=== PATIENT | male | born 1990 | race Asian ===

== ENCOUNTER 2023-03-11 10:44 | Inpatient (IN) | payer BC ==
[2023-03-08 12:52] LABS: BASOPHILS % (AUTO) 0.5 % (0-1); EOSINOPHILS # (AUTO) 0.1 X10'3 (0-0.9); EOSINOPHILS % (AUTO) 0.6 % (0-6); LYMPHOCYTES # (AUTO) 1.7 X10'3 (1.1-4.8); LYMPHOCYTES % (AUTO) 16.9 % (21-51); MEAN CORPUSCULAR HEMOGLOBIN 31.7 PG (27.0-31.0); MEAN CORPUSCULAR HGB CONC 35.5 g/dL (33.0-36.5); MEAN CORPUSCULAR VOLUME 89.4 FL (78-98); MEAN PLATELET VOLUME 8.8 FL (7.4-10.4); MONOCYTES # (AUTO) 0.7 X10'3 (0-0.9); MONOCYTES % (AUTO) 7.2 % (2-12); NEUTROPHILS # (AUTO) 7.5 X10'3 (1.8-7.7); NEUTROPHILS % (AUTO) 74.8 % (42-75); PRE OP HEMATOCRIT 42.4 % (42.0-52.0); PRE OP HEMOGLOBIN 15.1 g/dL (14.0-17.9); PRE OP PLATELET COUNT 291 X10'3 (140-440); RED BLOOD COUNT 4.74 X10'6 (4.70-6.10); RED CELL DISTRIBUTION WIDTH 12.9 % (11.5-14.5)
[2023-03-08 13:05] LABS: PRE OP PROTIME 10.3 SECONDS (9.0-12.0)
[2023-03-08 13:06] LABS: ALBUMIN 4.2 G/DL (3.4-5.0); ALBUMIN/GLOBULIN RATIO 1.1 (1.1-1.5); ALKALINE PHOSPHATASE 81 IU/L (46-116); BLOOD UREA NITROGEN 16 MG/DL (7-18); BUN/CREATININE RATIO 14.5 (10.0-20.0); CALCIUM 9.4 MG/DL (8.5-10.1); CHLORIDE 99 MMOL/L (99-107); PRE OP ALT 35 U/L (30-65); PRE OP ANION GAP 12 (8-16); PRE OP AST 16 U/L (10-37); PRE OP BILIRUB, TOTAL 0.8 MG/DL (0.0-1.0); PRE OP GLUCOSE 184 MG/DL (70-104); PRE OP POTASSIUM 3.7 MMOL/L (3.4-5.1); PRE OP SODIUM 139 MMOL/L (135-145); TOTAL CARBON DIOXIDE 27.8 MMOL/L (24-32); TOTAL PROTEIN 8.2 G/DL (6.4-8.2); eGFR 77 ML/MIN
[2023-03-08 13:09] LABS: HEMOGLOBIN A1C 6.1 % (4.5-6.2)
[~2023-03-11] VITALS: Ht 167.6 cm; Wt 97.2 kg
[2023-03-11] VITALS (21 sets, daily range): BP systolic 98–123; BP diastolic 55–92
[~2023-03-11 10:44] MED LIST: FEBU40TA PO; FENO145T38 PO; METF-436 PO; OMEGA 3; [UNRECOGNIZED DRUG - OTHER]; cefazolin 2gm/D5W 100mL 100 ML IV ONE; famotidine 20mg tablet PO ONE; ringers solution, lacted 1,000 ML IV SCH
[2023-03-11 12:19] LABS: CLARITY,URINE CLEAR (Clear); COLOR,URINE YELLOW (Yellow); GLUCOSE, URINE NEGATIVE (Neg); KETONES,URINE NEGATIVE (Neg); LEUKOCYTE ESTERASE ,URINE NEGATIVE (Neg); NITRITES, URINE NEGATIVE (Neg); OCCULT BLOOD,URINE NEGATIVE (Neg); PROTEIN,URINE NEGATIVE (Neg); UA COLLECTION TYPE VOIDED; UROBILINOGEN,URINE 0.2 E.U/dL (0.2-1.0)
[2023-03-11] MEDS ORDERED: vancomycin 1,000mg inj ONE (13:35)
[2023-03-11] MEDS ORDERED: tobramycin sulfate 1.2gm vial ONE (13:35)
[2023-03-11] MEDS ORDERED: fentaNYL/PF 50MCG/1 ML 2ML syringe ONE (13:50)
[2023-03-11] MEDS ORDERED: tranexamic acid 100mg/ml inj. ONE (13:53)
[2023-03-11] MEDS ORDERED: sevoflurane 250ml liquid IH ONE (13:53)
[2023-03-11] MEDS ORDERED: labetalol 20mg/4ml (5mg/ml) syringe IV PRN (14:00)
[2023-03-11] MEDS ORDERED: ringers solution, lacted 1,000 ML IV SCH (14:00)
[2023-03-11] MEDS ORDERED: morphine 2 MG/ML inj. syringe IV PRN (14:00)
[2023-03-11] MEDS ORDERED: ketorolac trometh. 30mg/ml inj. IV ONE (14:00)
[2023-03-11] MEDS ORDERED: meperidine/PF 25mg/ml syringe IV PRN ×3 (14:00)
[2023-03-11] MEDS ORDERED: hydrALAZINE 20mg/ml inj. IV PRN (14:00)
[2023-03-11] MEDS ORDERED: ondansetron/PF 4mg/2ml inj IV PRN ×2 (14:00→17:45)
[2023-03-11] MEDS ORDERED: proCHLORperazine 10 MG/2 ml inj IV PRN (14:00)
[2023-03-11] MEDS ORDERED: morphine 4 MG/ML inj SYRINge IV PRN (14:00)
[2023-03-11] MEDS ORDERED: acetaminophen 1,000mg/100ml IV 100 ML IV PRN (14:00)
[2023-03-11] MEDS ORDERED: LIDOcaine 1%/PF 5ML 10 MG/ML VIAL ONE (14:27)
[2023-03-11] MEDS ORDERED: midazolam 1 mg/ML 2ml injection ONE (14:27)
[2023-03-11] MEDS ORDERED: propofol inj 20 ML IV ONE ×2 (14:27)
[2023-03-11] MEDS ORDERED: ROPIVAcaine 0.5% (5mg/ml) 30ml vial ONE (14:27)
[2023-03-11] MEDS ORDERED: LIDOcaine 2% (20mg/ml) 5ml vial ONE (14:28)
[2023-03-11] MEDS ORDERED: dexamethasone sod phosphate 4mg/ml inj. ONE (14:28)
[2023-03-11] MEDS ORDERED: rocuronium 10mg/ml inj IV ONE (14:28)
[2023-03-11] MEDS ORDERED: ondansetron/PF 4mg/2ml inj ONE (14:30)
[2023-03-11] MEDS ORDERED: morphine 10mg/ml inj. ONE (16:41)
[2023-03-11] MEDS ORDERED: neostigmine methylsulfate 1 MG/ML 10ml vial ONE (16:49)
[2023-03-11] MEDS ORDERED: glycopyrrolate 0.2mg/ml inj ONE (16:49)
[2023-03-11] MEDS ORDERED: tobramycin sulfate 1.2gm vial TP ONE (16:50)
--- NOTE | 2023-03-11 17:12 | NUR ---
Received from OR via HOSPITAL BED TO RR 7, accompanied by Anesthesiologist DR GONSALES and report given by Anesthesiolgist. PT PRESETNS WITH PIV 20G RIGHT HAND, SPO2 99% 6L MASK, LR RUNNING AT 100MLS/HR, LEFT SHOULDER WRAP, POWDER PACK AND SLING CDI, PT CO NAUSEA, PT MEDICATED FOR NAUSEA.VSS. Addendum: 03/11/23 at 1745 by Sandy Webb RN, RN Amended: Links added.
[2023-03-11] MEDS ORDERED: acetaminophen 325mg tablet PO PRN (17:45)
[2023-03-11] MEDS ORDERED: naloxone 0.4 mg/ml inj IV PRN (17:45)
[2023-03-11] MEDS ORDERED: diphenhydrAMINE 25mg capsule PO PRN (17:45)
--- NOTE | 2023-03-11 18:05 | NUR ---
DR GIL AT BEDSIDE
--- NOTE | 2023-03-11 19:12 | NUR ---
Report called to receiving nurse DEJAH BALLESTEROS. Transferred via HOSPITAL BED TO ROOM 4011B WITH . BED IN LOW LOCKED POSTION WITH CALL LIGHT IN REACH, PT HOOKED P TO VITALS MACHINE. CHART TAKEN TO NURSES STATIN. PT Belongings TAKEN TO ROOM 4011B, 2 PT BAGS WITH 1 BACKPACK. Special Issues communicated to receiving nurse. Addendum: 03/11/23 at 1925 by Sandy Webb RN, RN Amended: Links added.
--- NOTE | 2023-03-11 19:15 | NUR ---
Patient in room ORTHO 4011. I have received report from Sandy CLINICAL NURSE SPECIALIST and had the opportunity to ask questions and assume patient care.
[2023-03-11] MEDS: potassium cl 20mEq in 1/2 NS 1,000 ML IV SCH (19:22)
--- NOTE | 2023-03-11 19:30 | NUR ---
pt arrived to floor via hospital bed from [facility]. accompanied by pacu nurse and . pt. in stable condition. sleeping. no signs of distress. will continue to monitor.
[2023-03-11] MEDS: VANCOmycin 1250MG/NS 250ml Bag 250 ML IV SCH (20:01)
[2023-03-11] MEDS: metFORMIN 500mg tablet PO SCH (20:01)
[2023-03-11] MEDS: CefTRIAXone 2gm/D5W 50ml BAG 50 ML IV SCH (20:01)
--- NOTE | 2023-03-11 20:18 | NUR ---
reported to dr. reyes pts + blood culture of humeral nail of left shoulder. pt. on vanco and rocephin. no new order received.
[2023-03-12 02:00] VITALS: BP 111/63
[2023-03-12 06:00] VITALS: BP 97/62
--- NOTE | 2023-03-12 06:30 | NUR ---
Problems reprioritized. Patient report given, questions answered & plan of care reviewed with FAVIAN Rae.
[2023-03-12] MEDS: potassium cl 20mEq in 1/2 NS 1,000 ML IV SCH (07:05)
[2023-03-12 07:16] LABS: BASOPHILS % (AUTO) 0.1 % (0-1); EOSINOPHILS % (AUTO) 0 % (0-6); HEMATOCRIT 35.5 % (42.0-52.0); HEMOGLOBIN 12.1 g/dl (14.0-17.9); LYMPHOCYTES # (AUTO) 0.8 X10'3 (1.1-4.8); LYMPHOCYTES % (AUTO) 6.4 % (21-51); MEAN CORPUSCULAR HEMOGLOBIN 30.8 PG (27.0-31.0); MEAN CORPUSCULAR HGB CONC 34.1 g/dL (33.0-36.5); MEAN CORPUSCULAR VOLUME 90.1 FL (78-98); MEAN PLATELET VOLUME 8.8 FL (7.4-10.4); MONOCYTES # (AUTO) 0.7 X10'3 (0-0.9); MONOCYTES % (AUTO) 5.7 % (2-12); NEUTROPHILS # (AUTO) 11.2 X10'3 (1.8-7.7); NEUTROPHILS % (AUTO) 87.8 % (42-75); PLATELET COUNT 252 X10'3 (140-440); RED BLOOD COUNT 3.94 X10'6 (4.70-6.10); RED CELL DISTRIBUTION WIDTH 12.8 % (11.5-14.5); WHITE BLOOD COUNT 12.8 X10'3 (4.5-11.0)
[2023-03-12 07:35] LABS: ANION GAP 11 (8-16); CHLORIDE 101 MMOL/L (99-107); POTASSIUM 3.9 MMOL/L (3.5-5.1); SODIUM 137 MMOL/L (135-145); TOTAL CARBON DIOXIDE 24.8 MMOL/L (24-32)
[2023-03-12] MEDS ORDERED: CefTRIAXone 2gm/D5W 50ml BAG 50 ML IV SCH (08:00)
[2023-03-12] MEDS: metFORMIN 500mg tablet PO SCH ×2 (08:01→20:32)
[2023-03-12] MEDS: fenofibrate 145mg tablet PO SCH (08:01)
[2023-03-12] MEDS: febuxostat 40mg tablet PO SCH (08:02)
[2023-03-12] MEDS: VANCOmycin 1250MG/NS 250ml Bag 250 ML IV SCH ×2 (08:03→20:32)
--- NOTE | 2023-03-12 09:48 | NUR ---
PICC consent signed and PICC paged.
[2023-03-12 10:00] VITALS: BP 94/55
[2023-03-12] MEDS: HYDROcodone/acetaminophen 10/325mg tab PO PRN ×4 (11:53→22:05)
[2023-03-12 12:03] LABS: C-REACTIVE PROTEIN 4.19 MG/DL (0.0-0.5)
--- NOTE | 2023-03-12 14:37 | NUR ---
PAGER ID: [phone] MESSAGE: [facility] [id number] Pain uncontrolled 7/10 L shoulder after 2 NOrco 10mg. Nothing else due for 5 hour. PLease advise. Pt. also asking for muscle relaxer. Kyra [id number]
[2023-03-12 14:52] LABS: ALANINE AMINOTRANSFERASE 31 U/L (12-78); ALBUMIN 3.6 G/DL (3.4-5.0); ALKALINE PHOSPHATASE 62 IU/L (46-116); ANION GAP 9 (8-16); ASPARTATE AMINO TRANSFERASE 21 U/L (10-37); BILIRUBIN,TOTAL 0.6 MG/DL (0.1-1.0); BLOOD UREA NITROGEN 12 MG/DL (7-18); BUN/CREATININE RATIO 11.8 (10.0-20.0); CALCIUM 9.2 MG/DL (8.5-10.1); CHLORIDE 103 MMOL/L (99-107); CREATININE 1.02 MG/DL (0.60-1.10); GLUCOSE 145 MG/DL (70-104); POTASSIUM 3.7 MMOL/L (3.5-5.1); SODIUM 137 MMOL/L (135-145); TOTAL CARBON DIOXIDE 24.9 MMOL/L (24-32); TOTAL PROTEIN 7.3 G/DL (6.4-8.2); eGFR 84 ML/MIN
--- NOTE | 2023-03-12 15:55 | NUR ---
PAGER ID: [phone] MESSAGE: 2nd page. [phone] [facility] in pain. Chassell not effective. am I paging the right MD? Kyra [id number]
[2023-03-12] MEDS: morphine 2 MG/ML inj. syringe IV PRN ×2 (16:12→20:14)
[2023-03-12 18:00] VITALS: BP 121/74
--- NOTE | 2023-03-12 18:36 | NUR ---
Report given to Sherice BALLESTEROS.
--- NOTE | 2023-03-12 19:13 | NUR ---
Patient in room ORTHO 4011. I have received report from BEAN BALLESTEROS and had the opportunity to ask questions and assume patient care.
[2023-03-12] MEDS: CefTRIAXone 2gm/D5W 50ml BAG 50 ML IV SCH (20:55)
[2023-03-12 22:00] VITALS: BP 119/71
[2023-03-13] MEDS: morphine 2 MG/ML inj. syringe IV PRN ×2 (00:15→08:02)
[2023-03-13] MEDS: HYDROcodone/acetaminophen 10/325mg tab PO PRN ×6 (04:08→22:22)
[2023-03-13 06:00] VITALS: BP 126/80
--- NOTE | 2023-03-13 06:43 | NUR ---
Patient in room ORTHO 4011. I have received report from Sherice and had the opportunity to ask questions and assume patient care.
--- NOTE | 2023-03-13 06:48 | NUR ---
Problems reprioritized. Patient report given, questions answered & plan of care reviewed with MARYELLEN BALLESTEROS.
[2023-03-13 07:30] LABS: BASOPHILS % (AUTO) 0.2 % (0-1); EOSINOPHILS % (AUTO) 0.2 % (0-6); HEMATOCRIT 35.2 % (42.0-52.0); HEMOGLOBIN 12.2 g/dl (14.0-17.9); LYMPHOCYTES # (AUTO) 1.2 X10'3 (1.1-4.8); LYMPHOCYTES % (AUTO) 11.7 % (21-51); MEAN CORPUSCULAR HEMOGLOBIN 31.3 PG (27.0-31.0); MEAN CORPUSCULAR HGB CONC 34.8 g/dL (33.0-36.5); MEAN CORPUSCULAR VOLUME 89.9 FL (78-98); MEAN PLATELET VOLUME 8.4 FL (7.4-10.4); MONOCYTES # (AUTO) 0.8 X10'3 (0-0.9); MONOCYTES % (AUTO) 7.6 % (2-12); NEUTROPHILS # (AUTO) 8.3 X10'3 (1.8-7.7); NEUTROPHILS % (AUTO) 80.3 % (42-75); PLATELET COUNT 216 X10'3 (140-440); RED BLOOD COUNT 3.91 X10'6 (4.70-6.10); RED CELL DISTRIBUTION WIDTH 12.9 % (11.5-14.5); WHITE BLOOD COUNT 10.3 X10'3 (4.5-11.0)
[2023-03-13] MEDS ORDERED: VANCOMYCIN LEVEL IV ONE (07:30)
[2023-03-13] MEDS: VANCOmycin 1250MG/NS 250ml Bag 250 ML IV SCH (08:07)
[2023-03-13] MEDS: metFORMIN 500mg tablet PO SCH ×2 (08:12→20:00)
[2023-03-13] MEDS: febuxostat 40mg tablet PO SCH (08:16)
[2023-03-13] MEDS: fenofibrate 145mg tablet PO SCH (08:16)
[2023-03-13 10:00] VITALS: BP 130/84
[2023-03-13 18:00] VITALS: BP 138/78
--- NOTE | 2023-03-13 18:41 | NUR ---
Problems reprioritized. Patient report given, questions answered & plan of care reviewed with
[2023-03-13] MEDS: CefTRIAXone 2gm/D5W 50ml BAG 50 ML IV SCH (20:00)
[2023-03-13] MEDS: VANCOMYCIN 1,500MG in NS 300ml IVPB IV SCH (21:47)
[2023-03-14] MEDS: HYDROcodone/acetaminophen 10/325mg tab PO PRN ×4 (01:56→20:34)
[2023-03-14 05:31] LABS: BASOPHILS % (AUTO) 0.3 % (0-1); EOSINOPHILS % (AUTO) 0.2 % (0-6); HEMATOCRIT 35.6 % (42.0-52.0); HEMOGLOBIN 12.3 g/dl (14.0-17.9); LYMPHOCYTES # (AUTO) 1.2 X10'3 (1.1-4.8); LYMPHOCYTES % (AUTO) 13.2 % (21-51); MEAN CORPUSCULAR HGB CONC 34.6 g/dL (33.0-36.5); MEAN CORPUSCULAR VOLUME 89.7 FL (78-98); MEAN PLATELET VOLUME 8.2 FL (7.4-10.4); MONOCYTES % (AUTO) 10.6 % (2-12); NEUTROPHILS # (AUTO) 6.9 X10'3 (1.8-7.7); NEUTROPHILS % (AUTO) 75.7 % (42-75); PLATELET COUNT 233 X10'3 (140-440); RED BLOOD COUNT 3.96 X10'6 (4.70-6.10); RED CELL DISTRIBUTION WIDTH 12.5 % (11.5-14.5); WHITE BLOOD COUNT 9.1 X10'3 (4.5-11.0)
[2023-03-14 06:00] VITALS: BP 132/88
--- NOTE | 2023-03-14 06:29 | NUR ---
Problems reprioritized. Patient report given, questions answered & plan of care reviewed with MARIN BALLESTEROS.
--- NOTE | 2023-03-14 06:45 | NUR ---
Patient in room ORTHO 4011. I have received report from FAVIAN DUKES and had the opportunity to ask questions and assume patient care.
[2023-03-14] MEDS: aspirin 325mg tablet PO SCH (08:01)
[2023-03-14] MEDS: metFORMIN 500mg tablet PO SCH ×2 (08:01→19:39)
[2023-03-14] MEDS: febuxostat 40mg tablet PO SCH (08:01)
[2023-03-14] MEDS: VANCOMYCIN 1,500MG in NS 300ml IVPB IV SCH ×2 (08:01→21:10)
[2023-03-14] MEDS: fenofibrate 145mg tablet PO SCH (08:01)
[2023-03-14 10:00] VITALS: BP 120/73
--- NOTE | 2023-03-14 12:51 | NUR ---
AGER ID: [phone] MESSAGE: [id number]- [facility]- has orders for Barton 10. Ok to order Barton 5? Pt states 10mg makes him drowsy would like to try 5mg.- Alysia 0822
[2023-03-14] MEDS ORDERED: HYDROcodone/acetaminophen 5mg/325mg tablet PO PRN (13:00)
[2023-03-14 18:00] VITALS: BP 132/85
--- NOTE | 2023-03-14 18:13 | NUR ---
Problems reprioritized. Patient report given, questions answered & plan of care reviewed with FAVIAN Smiley.
--- NOTE | 2023-03-14 18:14 | NUR ---
Problems reprioritized. Patient report given, questions answered & plan of care reviewed with FAVIAN Smiley.
--- NOTE | 2023-03-14 19:00 | NUR ---
Patient in room ORTHO 4011. I have received report from MARIN BALLESTEROS and had the opportunity to ask questions and assume patient care.
[2023-03-14] MEDS: CefTRIAXone 2gm/D5W 50ml BAG 50 ML IV SCH (19:40)
[2023-03-14 22:00] VITALS: BP 116/74
[2023-03-15] MEDS: HYDROcodone/acetaminophen 10/325mg tab PO PRN ×4 (00:17→13:07)
--- NOTE | 2023-03-15 06:18 | NUR ---
Patient in room ORTH[facility] 4011. I have received report from FAVIAN Smiley and had the opportunity to ask questions and assume patient care.
--- NOTE | 2023-03-15 06:20 | NUR ---
Problems reprioritized. Patient report given, questions answered & plan of care reviewed with MARIN BALLESTEROS.
[2023-03-15 06:37] VITALS: BP 121/85
[2023-03-15] MEDS: VANCOMYCIN 1,500MG in NS 300ml IVPB IV SCH (07:15)
[2023-03-15] MEDS: febuxostat 40mg tablet PO SCH (07:16)
[2023-03-15] MEDS: aspirin 325mg tablet PO SCH (07:16)
[2023-03-15] MEDS: fenofibrate 145mg tablet PO SCH (07:16)
[2023-03-15] MEDS: metFORMIN 500mg tablet PO SCH (07:16)
[2023-03-15] MEDS ORDERED: VANCOMYCIN LEVEL IV ONE (07:30)
[2023-03-15 11:07] VITALS: BP 128/80
[2023-03-15] MEDS ORDERED: HYDR-3972 PO ×2 (11:16→15:33)
[2023-03-15] MEDS ORDERED: ASPI-1 PO (11:16)
--- NOTE | 2023-03-15 14:11 | NUR ---
Patient alert and oriented with no apparent cute distress. No complaints at this time. Patient spouse at bedside. Discussed with patient discharge instructions and new prescriptions as well as dressing changes. Demonstrated dressing change to left shoulder. Patient and spouse verbalize understanding of teaching. Patient understands need to be at [facility] by 1500. Patient ANDRE PICC placed today by PICC RN and going home with.
--- NOTE | 2023-03-15 14:35 | NUR ---
Patient dc'd with all personal belongings accompanied by x1 staff and spouse.
[2023-03-15] MEDS ORDERED: ASPI-57 PO (15:33)
[2023-03-15] MEDS ORDERED: VANCOmycin 1250MG/NS 250ml Bag 250 ML IV SCH (16:00)
[2023-03-16] MEDS ORDERED: VANCOMYCIN LEVEL IV ONE (15:30)
== END 2023-03-15 14:20 | disposition home or self-care (01) | DRG 464 ==
LOC: PAS IN 10:44 → ORTHO 4S 19:18
PROVIDERS: ADMIT Specialist; ATTEND Specialist
PROC: 0JBF0ZZ Excision of Left Upper Arm Subcutaneous Tissue and Fascia, Open Approach (ICD-10-PCS; 2023-03-11)
PROC: 3E0U029 Introduction of Other Anti-infective into Joints, Open Approach (ICD-10-PCS; 2023-03-11)
PROC: 0RPK0J6 Removal of Synthetic Substitute from Left Shoulder Joint, Humeral Surface, Open Approach (ICD-10-PCS; principal; 2023-03-11 13:53)
PROC: 05HY33Z Insertion of Infusion Device into Upper Vein, Percutaneous Approach (ICD-10-PCS; 2023-03-15)
PROC: B54MZZA Ultrasonography of Right Upper Extremity Veins, Guidance (ICD-10-PCS; 2023-03-15)
DX: T84.59XA Infection and inflammatory reaction due to other internal joint prosthesis, initial encounter (principal); M60.012 Infective myositis, left shoulder; M86.112 Other acute osteomyelitis, left shoulder; Y83.8 Other surgical procedures as the cause of abnormal reaction of the patient, or of later complication, without mention of misadventure at the time of the procedure; M10.9 Gout, unspecified; E11.69 Type 2 diabetes mellitus with other specified complication; E78.5 Hyperlipidemia, unspecified; Y92.89 Other specified places as the place of occurrence of the external cause; Z79.899 Other long term (current) drug therapy; Z79.82 Long term (current) use of aspirin
CPT/HCPCS: Z7506; Z7508; 36000; 36415; 71046; 73020; 73060; 76000; 80051; 80053; 80202; 81003; 82948; 83036; 85025; 85610; 85651; 85730; 86140; 86885; 86900; 86901; 87070; 87075; 87081; 87102; 93005; 97161; 97530; A4615; A4618; A6449; A6455; A7000; C1713; C1751; G0378; J0131; J0690; J0696; J0780; J1100; J1885; J2250; J2270; J2274; J2405; J2704; J2710; J2795; J3010; J3260; J3370; J3480; J3490; J7040; J7120